=== PATIENT | female | born 1960 | race Caucasian/White ===

== ENCOUNTER → 2024-08-04 13:22 | Outpatient (REF) | payer OTHER, SELFPAY | LOC: HWRAD 13:22 | PROVIDERS: ATTENDING PHYSICIAN Hospitalist | DX: R06.09 Other forms of dyspnea (principal) | CPT/HCPCS: 71046 ==

== ENCOUNTER → 2024-08-08 15:29 | Outpatient (REF) | payer OTHER, SELFPAY | LOC: RAD 15:29 | PROVIDERS: ATTENDING PHYSICIAN Hospitalist | DX: Q25.40 Congenital malformation of aorta unspecified (principal) | CPT/HCPCS: 71275; Q9967 ==

== ENCOUNTER → 2024-08-19 08:16 | Outpatient (REF) | payer OTHER, SELFPAY | LOC: RSP 08:16 | PROVIDERS: ATTENDING PHYSICIAN Hospitalist | DX: R06.09 Other forms of dyspnea (principal) | CPT/HCPCS: 94727; 94729; 88738; 94010 ==

== ENCOUNTER → 2024-09-09 11:11 | Outpatient (REF) | payer OTHER, SELFPAY | LOC: HWWDC 11:11 | PROVIDERS: ATTENDING PHYSICIAN Physician Assistant; FAMILY PHYSICIAN Hospitalist | DX: Z12.31 Encounter for screening mammogram for malignant neoplasm of breast (principal) | CPT/HCPCS: 77063; 77067 ==

== ENCOUNTER → 2024-09-11 12:54 | Outpatient (REF) | payer OTHER, SELFPAY | LOC: HWRAD 12:54 | PROVIDERS: ATTENDING PHYSICIAN Obstetrics & Gynecology; FAMILY PHYSICIAN Hospitalist | DX: M81.0 Age-related osteoporosis without current pathological fracture (principal) | CPT/HCPCS: 77080 ==

== ENCOUNTER → 2024-11-04 07:49 | Outpatient (REF) | payer OTHER, SELFPAY | LOC: PET 07:49 | PROVIDERS: ATTENDING PHYSICIAN Internal Medicine Interventional Cardiology | DX: R06.02 Shortness of breath (principal); E66.01 Morbid (severe) obesity due to excess calories; I10 Essential (primary) hypertension; E78.2 Mixed hyperlipidemia; Z87.891 Personal history of nicotine dependence | CPT/HCPCS: 78431; A9555; J2785 ==

== ENCOUNTER → 2024-11-07 11:14 | Outpatient (REF) | payer OTHER, SELFPAY | LOC: HWRCS 11:14 | PROVIDERS: ATTENDING PHYSICIAN Internal Medicine Interventional Cardiology; FAMILY PHYSICIAN Hospitalist | DX: R06.02 Shortness of breath (principal); E66.01 Morbid (severe) obesity due to excess calories; I10 Essential (primary) hypertension | CPT/HCPCS: 93306 ==

== ENCOUNTER → 2024-11-19 10:21 | Outpatient (REF) | payer OTHER, SELFPAY | LOC: RAD 10:21 | PROVIDERS: ATTENDING PHYSICIAN Internal Medicine Interventional Cardiology; FAMILY PHYSICIAN Hospitalist | DX: R06.02 Shortness of breath (principal); E66.01 Morbid (severe) obesity due to excess calories; I10 Essential (primary) hypertension; E78.2 Mixed hyperlipidemia; Z87.891 Personal history of nicotine dependence | CPT/HCPCS: 93880 ==